=== PATIENT | male | born 1960 | race Caucasian/White ===

== ENCOUNTER 2021-01-10 08:47 | Outpatient (CLI) | payer MEDICARE | END 2021-01-10 08:48 | disposition home or self-care (01) | LOC: CSHMRI 08:47 | PROVIDERS: ATTEND Internal Medicine Hematology & Oncology | DX: C7A.019 Malignant carcinoid tumor of the small intestine, unspecified portion (principal); C78.7 Secondary malignant neoplasm of liver and intrahepatic bile duct; C7A.020 Malignant carcinoid tumor of the appendix | CPT/HCPCS: 74183 ==

== ENCOUNTER 2021-07-11 08:56 | Outpatient (CLI) | payer MEDICARE ==
[~2021-07-11 08:56] MED LIST: Magnevist 469MG/ML 20 ML VIAL ONE
== END 2021-07-11 08:57 | disposition home or self-care (01) ==
LOC: CSHMRI 08:56
PROVIDERS: ATTEND Internal Medicine Hematology & Oncology
DX: C7A.020 Malignant carcinoid tumor of the appendix (principal); C78.7 Secondary malignant neoplasm of liver and intrahepatic bile duct; C7A.019 Malignant carcinoid tumor of the small intestine, unspecified portion
CPT/HCPCS: 74183; 82565; A9579

== ENCOUNTER 2024-01-26 08:32 | Outpatient (CLI) | payer OTHER ==
[2024-01-26] MEDS ORDERED: Iopamidol 300 61% 100 ML VIAL FS ONE (14:48)
== END 2024-01-26 08:33 | disposition home or self-care (01) ==
LOC: CSHCT 08:32
PROVIDERS: ATTEND Internal Medicine Hematology & Oncology
DX: C7A.019 Malignant carcinoid tumor of the small intestine, unspecified portion (principal); C7A.020 Malignant carcinoid tumor of the appendix; C78.7 Secondary malignant neoplasm of liver and intrahepatic bile duct
CPT/HCPCS: 71260; 74177; 82565